=== PATIENT | male | born 1950 | race Two or more races ===

== ENCOUNTER 2025-03-08 09:20 | Emergency (ER) | payer MEDICARE, MEDICAID, SELFPAY ==
[2025-03-08 09:21] VITALS: BMI 38.9
[2025-03-08 09:28] VITALS: BP 145/95; PULSE 104; RESP 18; TEMP 36.7; O2SAT 96
--- NOTE | 2025-03-08 09:30 | XR_ITS ---
Examination: PA lateral chest 2 views TECHNIQUE: Upright PA lateral chest 2 views Date and time: March 08, 2025 0948 hours INDICATIONS: Chest pain beginning 2 days ago COMPARISON: May 29, 2024 FINDINGS: Normal heart size. Lungs are clear. Moderate osteopenia IMPRESSION: No active disease
--- NOTE | 2025-03-08 09:30 | EKG_ITS ---
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: : [id number] Requested By: Atif Grissom (LINOLEUM INSTALLER) Order Number: [id number] Reading MD: Atif Grissom (LINOLEUM INSTALLER) Measurements Intervals [place] Rate: 101 P: 13 NM: 151 QRS: -63 QRSD: 110 T: -15 QT: 338 QTc: 440 Interpretive Statements SINUS TACHYCARDIA LOW QRS VOLTAGE IN PRECORDIAL LEADS [QRS DEFLECTION < 1.0 mV IN CHEST LEADS] INCOMPLETE RIGHT BUNDLE BRANCH BLOCK [90+ ms QRS DURATION, TERMINAL R IN V1/V2, 40+ ms S IN I/aVL/V4/V5/V6] LEFT ANTERIOR FASCICULAR BLOCK [QRS AXIS <= -45, QR IN I, RS IN II] POSSIBLE ANTERIOR MYOCARDIAL INFARCTION , OF INDETERMINATE AGE [30 ms Q WAVE IN V3/V4, OR R < 0.2 mV IN V4] No previous ECG available for comparison /[id number]/S0/[id number].pdf
--- NOTE | 2025-03-08 09:31 | PD.EDRME ---
Rapid Medical Screening Exam RME Arrival date/time: 03/08/25 09:20 74-year-old male with history of hypertension and diabetes presents to the emergency department for complaints of frequent urination, dry mouth and elevated blood sugar Chief Complaint: General Adult/Misc Complain Time Seen by Provider: 03/08/25 09:22 Vital signs: Vital Signs Temperature 98.0 F 03/08/25 09:28 Pulse Rate 104 H 03/08/25 09:28 Respiratory Rate 18 03/08/25 09:28 Blood Pressure 145/95 H 03/08/25 09:28 Pulse Oximetry (%) 96 03/08/25 09:28 Oxygen Delivery Method Room Air 03/08/25 09:28
[2025-03-08 09:49] LABS: Base Excess, Venous 4 (-3-3); O2 Saturation, Venous 64 % (96-97); PCO2, Venous 41 mmHg (36-56); PO2, Venous 30 mmHg (15-58); pH, Venous 7.45 (7.33-7.66)
[2025-03-08 09:51] LABS: Beta Hydroxybutyrate 0.3 mmol/L (<0.6)
[2025-03-08 09:54] LABS: Collection Type, Urine Catheter
[2025-03-08 09:54] LABS: Basophils # (Auto) 0.1 Thou/mm3 (0.0-0.2); Basophils % (Auto) 1 % (0-2.5); Eosinophils # (Auto) 0.1 Thou/mm3 (0.0-0.5); Eosinophils % (Auto) 2 % (0-10); Hemoglobin 15.8 g/dL (13.5-16.0); Immature Granulocytes % (Auto) 0 % (0-0); Immature Granulocytes Auto 0.01 Thou/mm3 (0.00-0.00); Lymphocytes # (Auto) 1.9 Thou/mm3 (1.0-4.8); Lymphocytes % (Auto) 30 % (10-50); Mean Corpuscular HGB Conc 35.1 g/dl (31.0-37.0); Mean Corpuscular Hemoglobin 28.7 pg (25.0-35.0); Mean Corpuscular Volume 82 fL (80-100); Monocytes # (Auto) 0.4 Thou/mm3 (0.0-0.8); Monocytes % (Auto) 6 % (0-12); Neutrophils # (Auto) 3.8 Thou/mm3 (1.8-7.7); Neutrophils % (Auto) 61 % (37-80); Nucleated Red Blood Cell % 0 /100 WBC (0); Platelet Count 197 Thou/mm3 (140-440); RDW Standard Deviation 36.1 fL (35.1-43.9); Red Blood Count 5.51 Miln/mm3 (4.50-5.90); White Blood Count 6.3 Thou/mm3 (3.8-10.6)
[2025-03-08 10:06] LABS: Glucose Estimated Average 355 mg/dL (80-131); Hemoglobin A1C > 14.0 % Hgb (4.8-6.0)
[2025-03-08 10:08] LABS: Bilirubin,Urine Negative (Negative); Blood,Urine Trace (Negative); Clarity,Urine Clear (Clear/Hazy); Color,Urine Yellow (Lt Yel-Yel); Culture Indicated,Urine Not Indicated; Glucose, Urine 4+ (Negative); Ketones,Urine Negative (Negative); Leukocyte Esterase,Urine Negative (Negative); Nitrite,Urine Negative (Negative); PH,Urine 6.5 (5.0-7.0); Protein,Urine Trace (Neg - Trace); RBC,Urine 3 /hpf (0-3); Specific Gravity,Urine 1.038 (1.001-1.035); Squamous Epithelial Cell,Urine < 1 /hpf (0-5); Urobilinogen,Urine Negative mg/dL (0.0-1.0); WBC,Urine 1 /hpf (0-5)
[2025-03-08 10:18] LABS: Alanine Aminotransferase 23 U/L (10-49); Albumin, Serum 4.3 gm/dL (3.4-4.8); Albumin/Globulin Ratio 1.8 (1.2-2.2); Alkaline Phosphatase 100 U/L (46-116); Anion Gap 11 (7-16); Aspartate Amino Transferase 19 U/L (0-34); BUN/Creatinine Ratio 10 Ratio (12-20); Bilirubin,Total 0.6 mg/dL (0.3-1.2); Blood Urea Nitrogen 12 mg/dL (9-23); Calcium 8.8 mg/dL (8.3-10.6); Calcium (Corrected) 8.8 mg/dL (8.5-10.1); Carbon Dioxide 27.5 mMol/L (20.0-31.0); Chloride 103 mMol/L (98-107); Creatinine (Component) 1.2 mg/dL (0.6-1.3); Estimated Creatinine Clearance 65.8 mL/min (>60); Globulin 2.4 gm/dL (2.3-3.5); Glucose 369 mg/dL (74-106); Osmolality,Calculated 295 (275-295); Sodium 141 mMol/L (136-145); Total Protein 6.7 gm/dL (5.7-8.2); Troponin I < 0.020 ng/mL (0.0-0.045); eGFR > 60 See Note
--- NOTE | 2025-03-08 11:21 | PD.EDADULT ---
ED General RME/HPI General Chief complaint: General Adult/Misc Complain Stated complaint: WEAKNESS, DRY MOUTH, FREQUENT URINATION, HIGH BLOO Time Seen by Provider: 03/08/25 09:22 Arrival date/time: 03/08/25 09:20 RME / HPI RME / HPI narrative: 03/08/25 The patient is a 74-year-old gentleman with past medical history significant for hypertension, diabetes mellitus type 2 and hypercholesterolemia presented to ED with chief complaint of excessive thirst, frequent urination and occasional dizziness for the past 1 week. He admitted associated tingling sensation over his bilateral lower limb. He reported feeling thirsty, and drinking a lot of orange juice including sugary drinks for the past 2 weeks. He denied any headache, nausea or vomiting, fever or chills, chest pain, SOB, abdominal pain, any changes in bowel habit or leg swelling. Related Data Previous Rx's ?Medication ?Instructions ?Recorded blood sugar diagnostic (FreeStyle #100 ea 10/31/23 Test strips) lancets 30 gauge (Advocate Lancet) #200 ea 10/31/23 pen needle, diabetic 33 gauge x #100 ea 11/02/2310/13 (Comfort EZ Pen [place]) pen needle, diabetic 32 gauge x #50 ea 02/06/2410/13 (BD Ultra-Fine Micro Pen Needle) docusate sodium 100 mg capsule 100 mg PO QDAY #90 caps 04/02/24 (Colace) meclizine 25 mg tablet 25 mg PO TID PRN dizziness #20 tabs 04/17/24 insulin glargine 100 unit/mL (3 25 unit (0.25 mL) subcut QPM 90 05/07/24 mL) subcutaneous pen (aglar days #22.5 mL KwikPen U-100 Insulin) verapamil 240 mg tablet,extended 240 mg PO QAM #90 tabs 05/07/24 release ibuprofen 600 mg tablet 600 mg PO Q8H PRN fever or pain 05/14/24 #30 tabs empagliflozin 10 mg tablet 10 mg PO QAM #90 tabs 05/29/24 (Jardiance) hydrochlorothiazide 25 mg tablet 25 mg PO QAM #90 tabs 05/29/24 rosuvastatin 20 mg tablet 20 mg PO QDAY #90 tabs 05/29/24 semaglutide 2 mg/dose (8 mg/3 mL) 2 mg (0.75 mL) subcut QWEEK #3 mL 05/29/24 subcutaneous pen injector (Ozempic) cetirizine 10 mg capsule (All Day 10 mg PO QDAY PRN allergy symptoms 07/26/24 Allergy (cetirizine)) #90 caps Allergies Allergy/AdvReac Type Severity Reaction Status Date / Time No Known Allergies Allergy Verified 03/08/25 09:23 Review of Systems Review of Systems Systems Reviewed: All systems reviewed, normal except as documented (Above) ED Exam Narrative Physical exam: General: Elderly, cooperative gentleman, no acute distress, Alert and Oriented x 3 HEENT: Dry mucous membranes, oropharynx clear Neck: Supple, No masses, No JVD CVS: S1S2 Regular rate and rhythm, No murmurs, rubs or gallops Lungs: Clear to auscultation with no accessory use, no wheeze no rhonchi Abd: Soft, NT/ND, +BS, no organomegaly Ext: No edema, warm and well perfused Skin: No rash Psych: Appropriate mood and affect Course Orders Category Date Time Status Bedside Blood Glucose NOW Care 03/08/25 09:31 Active EKG (ED ONLY) *Do not use* NOW Care 03/08/25 09:30 Completed Insert IV NOW Care 03/08/25 09:31 Active EKG (ED Only) Stat Exams 03/08/25 09:30 Draft XR chest 2V Stat Exams 03/08/25 09:30 Completed A1C [Glycohemoglobin w (eAG)] Stat Lab 03/08/25 09:41 Completed Beta Hydroxybutyrate Stat Lab 03/08/25 09:41 Completed CBC Stat Lab 03/08/25 09:41 Completed Comprehensive Metabolic Panel Stat Lab 03/08/25 09:41 Completed Troponin I Stat Lab 03/08/25 09:41 Completed UA, C/S IF [Urinalysis, C/S if Indicated] Stat Lab 03/08/25 09:51 Completed VBG [Venous Blood Gas] Stat Lab 03/08/25 09:41 Completed Sodium Chloride 0.9% 1000 ml [Ns] 1,000 ml Med 03/08/25 11:18 Active IV 999 mls/hr Vital Signs Vital signs: Vital Signs Temperature 98.0 F 03/08/25 09:28 Pulse Rate 104 H 03/08/25 09:28 Respiratory Rate 18 03/08/25 09:28 Blood Pressure 145/95 H 03/08/25 09:28 Pulse Oximetry (%) 96 03/08/25 09:28 Oxygen Delivery Method Room Air 03/08/25 09:28 Discharge Plan Prescriptions/Referrals Prescriptions/Med Rec: No Action (DME) FreeStyle Test Strip See Rx Instructions .Route Qty: 100 3RF Rx Instructions: check blood sugar twice (DME) lancets [Advocate Lancet] 30 gauge misc See Rx Instructions .Route Qty: 200 0RF Rx Instructions: As directed (DME) pen needle, diabetic [BD Ultra-Fine Micro Pen Needle] 32 gauge x 1/4 needle See Rx Instructions .ROUTE .MEDSUPPLY Qty: 50 0RF Rx Instructions: used to inject insulin once a day ibuprofen 600 mg tablet 600 mg PO Q8H PRN (Reason: fever or pain) Qty: 30 0RF docusate sodium [Colace] 100 mg capsule 100 mg PO QDAY Qty: 90 0RF meclizine 25 mg tablet 25 mg PO TID PRN (Reason: dizziness) Qty: 20 0RF insulin glargine [Basaglar KwikPen U-100 Insulin] 100 unit/mL (3 mL) insulin pen 25 unit subcut QPM 90 Days Qty: 22.5 1RF verapamil 240 mg tablet extended release 240 mg PO QAM Qty: 90 0RF hydrochlorothiazide 25 mg tablet 25 mg PO QAM Qty: 90 0RF rosuvastatin 20 mg tablet 20 mg PO QDAY Qty: 90 0RF Jardiance 10 mg tablet 10 mg PO QAM Qty: 90 0RF Ozempic 2 mg/dose (8 mg/3 mL) pen injector 2 mg subcut QWEEK Qty: 3 2RF All Day Allergy (cetirizine) 10 mg capsule 10 mg PO QDAY PRN (Reason: allergy symptoms) Qty: 90 0RF (DME) pen needle, diabetic [Comfort EZ Pen [place]] 33 gauge x 1/4 needle See Rx Instructions .Route Qty: 100 2RF Rx Instructions: Use pen needles to administered insulin once a day Referrals: Kate Whitman, [employer]-C [Primary Care Provider] - In 1 week Patient/Caregiver Discharge Instructions Print Language: Estonian MDM Medication Administration(s) Medication Administration History Sodium Chloride (Ns) 1,000 mls @ 999 mls/hr IV .Q1H1M ONE Stop: 03/08/25 12:18
--- NOTE | 2025-03-08 11:32 | EDNOTE_ITS ---
<Statement entered by Ashlee Pineda MD - 03/19/25 01:04> As co-signing physician, I was present and available for consult prn. I concur with the plan and care as documented by the midlevel provider. ED General RME/HPI General Chief complaint: General Adult/Misc Complain Stated complaint: WEAKNESS, DRY MOUTH, FREQUENT URINATION, HIGH BLOO Time Seen by Provider: 03/08/25 09:22 Arrival date/time: 03/08/25 09:20 RME / HPI RME / HPI narrative: 74-year-old male patient with significant history of hypertension diabetes mellitus, currently on insulin and metformin and recently on Ozempic got the first dose few days ago. Came in for evaluation regarding concern about blood sugar. This morning patient blood sugar was noted to be above 300, complaining of dry mouth, frequent urination, and generalized weakness. Patient denies any vomiting diarrhea or other complaints. Related Data Previous Rx's ?Medication ?Instructions ?Recorded blood sugar diagnostic (FreeStyle #100 ea 10/31/23 Test strips) lancets 30 gauge (Advocate Lancet) #200 ea 10/31/23 pen needle, diabetic 33 gauge x #100 ea 11/02/23 14 (Comfort EZ Pen [place]) pen needle, diabetic 32 gauge x #50 ea 02/06/2410/13 (BD Ultra-Fine Micro Pen Needle) docusate sodium 100 mg capsule 100 mg PO QDAY #90 caps 04/02/24 (Colace) meclizine 25 mg tablet 25 mg PO TID PRN dizziness # 20 tabs 04/17/24 insulin glargine 100 unit/mL (3 25 unit (0.25 mL) subc ut QPM 90 05/07/24 mL) subcutaneous pen (Basaglar days #22.5 mL KwikPen U-100 Insulin) verapamil 240 mg tablet,extended 240 mg PO QAM #90 tab s 05/07/24 release ibuprofen 600 mg tablet 600 mg PO Q8H PRN fever or p ain 05/14/24 #30 tabs empagliflozin 10 mg tablet 10 mg PO QAM #90 tabs 05/29 (Jardiance) hydrochlorothiazide 25 mg tablet 25 mg PO QAM #90 tabs 05/29/24 rosuvastatin 20 mg tablet 20 mg PO QDAY #90 tabs 05/29 semaglutide 2 mg/dose (8 mg/3 mL) 2 mg (0.75 mL) subcu t QWEEK #3 mL 05/29/24 subcutaneous pen injector (Ozempic) cetirizine 10 mg capsule (All Day 10 mg PO QDAY PRN al lergy symptoms 07/26/24 Allergy (cetirizine)) #90 caps Allergies Allergy/AdvReac Type Severity Reaction Status Date / Time No Known Allergies Allergy Verified 03/08/25 09:23 Review of Systems Review of Systems Narrative Review of Systems: Review of system reviewed and within normal limits except mentioned in HPI ED Exam Narrative Physical exam: VITAL SIGNS: Reviewed. GENERAL APPEARANCE: Alert and interactive, follows commands, no acute distress, HEAD AND FACE: Non-traumatic. ENT: PERRL, pink conjunctivitis, eyelid no trauma, Mucous membrane moist. NECK: Supple, nontender, no nuchal rigidity. CHEST: No tenderness, no crepitus, no paradoxical movement, no retractions. LUNGS: Clear, well ventilated, symmetric, no rales, no wheezing, no ronchi, no stridor, good breath sounds bilaterally. HEART: Regular rate, regular rhythm, no murmur, no gallops. ABDOMEN: Soft, positive bowel sounds, nondistended, no guarding, nontender, no rebound, no masses, RECTAL: Deferred. GENITAL: Deferred. NEUROLOGICAL: Gross motor function intact sensory function intact, Appropriate for age. MUSCULOSKELETAL: low back nontender, full range of motion. EXTREMITIES: Nontender, full range of motion. SKIN: Color pink, dry, no rash, no lacerations, no abrasions, no contusions. LYMPHATICS: Deferred. Course Quality Measures none Orders Category Date Time Status Bedside Blood Glucose NOW Care 03/08/25 09:31 Active EKG (ED ONLY) *Do not use* NOW Care 03/08/25 09:30 Completed Insert IV NOW Care 03/08/25 09:31 Active EKG (ED Only) Stat Exams 03/08/25 09:30 Draft XR chest 2V Stat Exams 03/08/25 09:30 Completed A1C [Glycohemoglobin w (eAG)] Stat Lab 03/08/25 09:41 Completed Beta Hydroxybutyrate Stat Lab 03/08/25 09:41 Completed CBC Stat Lab 03/08/25 09:41 Completed Comprehensive Metabolic Panel Stat Lab 03/08/25 09:41 Completed Troponin I Stat Lab 03/08/25 09:41 Completed UA, C/S IF [Urinalysis, C/S if Indicated] Stat Lab 03/08/25 09:51 Completed VBG [Venous Blood Gas] Stat Lab 03/08/25 09:41 Completed Sodium Chloride 0.9% 1000 ml [Ns] 1,000 ml Med 03/08/25 11:18 Active IV 999 mls/hr Vital Signs Vital signs: Vital Signs Temperature 98.0 F 03/08/25 09:28 Pulse Rate 104 H 03/08/25 09:28 Respiratory Rate 18 03/08/25 09:28 Blood Pressure 145/95 H 03/08/25 09:28 Pulse Oximetry (%) 96 03/08/25 09:28 Oxygen Delivery Method Room Air 03/08/25 09:28 Discharge Plan Plan Patient Disposition: HOME (Self Care) Discharge Disposition comment: Stable Prescriptions/Referrals Prescriptions/Med Rec: No Action (DME) FreeStyle Test Strip See Rx Instructions .Route Qty: 100 3RF Rx Instructions: check blood sugar twice (DME) lancets [Advocate Lancet] 30 gauge misc See Rx Instructions .Route Qty: 200 0RF Rx Instructions: As directed (DME) pen needle, diabetic [BD Ultra-Fine Micro Pen Needle] 32 gauge x 1/4 needle See Rx Instructions .ROUTE .MEDSUPPLY Qty: 50 0RF Rx Instructions: used to inject insulin once a day ibuprofen 600 mg tablet 600 mg PO Q8H PRN (Reason: fever or pain) Qty: 30 0RF docusate sodium [Colace] 100 mg capsule 100 mg PO QDAY Qty: 90 0RF meclizine 25 mg tablet 25 mg PO TID PRN (Reason: dizziness) Qty: 20 0RF insulin glargine [Basaglar KwikPen U-100 Insulin] 100 unit/mL (3 mL) insulin pen 25 unit subcut QPM 90 Days Qty: 22.5 1RF verapamil 240 mg tablet extended release 240 mg PO QAM Qty: 90 0RF hydrochlorothiazide 25 mg tablet 25 mg PO QAM Qty: 90 0RF rosuvastatin 20 mg tablet 20 mg PO QDAY Qty: 90 0RF Jardiance 10 mg tablet 10 mg PO QAM Qty: 90 0RF Ozempic 2 mg/dose (8 mg/3 mL) pen injector 2 mg subcut QWEEK Qty: 3 2RF All Day Allergy (cetirizine) 10 mg capsule 10 mg PO QDAY PRN (Reason: allergy symptoms) Qty: 90 0RF (DME) pen needle, diabetic [Comfort EZ Pen [place]] 33 gauge x 1/4 needle See Rx Instructions .Route Qty: 100 2RF Rx Instructions: Use pen needles to administered insulin once a day Referrals: Kate Whitman FNP-C [Primary Care Provider] - In 1 week Problem List Clinical Impression: Hyperglycemia due to type 2 diabetes mellitus Patient/Caregiver Discharge Instructions Discharge Activity: activity as tolerated Education Materials: Managing Your Glucose Level for ... Additional Instructions: Thank you for the opportunity for serving you today. You are stable for discharged . You are advised to: Follow-up with your PCP in 1 to 2 days Return to ED for worsening of symptoms Increase oral fluids Take medication as prescribed by your PCP Please decrease your intake of carbohydrates Try to exercise every day walking for 1 hour daily Print Language: Nepalese Stand Alone Forms: [facility] Award Info., Patient Portal Info Letter DERIAN/EDILSON Supervising Physician DERIAN/EDILSON Supervising Physician: MD Edwin [facility] Narrative MDM hospital course: 74-year-old male patient with significant history of hypertension diabetes mellitus, currently on insulin and metformin and recently on Ozempic got the first dose few days ago. Came in for evaluation regarding concern about blood sugar. This morning patient blood sugar was noted to be above 300, complaining of dry mouth, frequent urination, and generalized weakness. Patient denies any vomiting diarrhea or other complaints. Patient's CBC came back unremarkable. His initial blood sugar was noted to be 369, with no sign of diabetic ketoacidosis. Urinalysis no UTI blood sugar prior to discharge was noted to be 335. Patient is tolerating p.o. fluids. Vital signs are normal prior to discharge. I told the patient to decrease intake of carbohydrates and continue all his diabetic medications. I believe this patient's elevated blood sugar will be improving due to new medication that was started few days ago Ozempic. Patient appears nontoxic and hemodynamically stable. Patient discharged home and instructed to follow-up with primary care provider in 24 to 48 hours. Instructed to return to the emergency department immediately if worsening of symptoms Clinical Information Provided by other: patient Medical Records Reviewed None Meds/Rx Considered, not Ordered None Chronic Illness/Social Conditions which may negatively complicate care or outcome(s)-explain: other (Dehydration hyperglycemia DKA) Add or document further as needed: Hypertension, diabetes mellitus Imaging Imaging interpretation: none Medication Administration(s) Medication Administration History Sodium Chloride (Ns) 1,000 mls @ 999 mls/hr IV .Q1H1M ONE Stop: 03/08/25 12:18 Diagnosis Differential diagnosis: Hyperglycemia DKA, Differential dx and/or dx ruled out: DKA Most likely dx, and/or detailed dx discussion: Hyperglycemia secondary to diabetes mellitus Dispositon Disposition: Discharge Home
== END 2025-03-08 11:45 | disposition home or self-care (01) ==
PROVIDERS: Nurse Practitioner Primary Care; Emergency Provider Emergency Medicine
DX: E11.65 Type 2 diabetes mellitus with hyperglycemia (principal); R07.9 Chest pain, unspecified; R00.0 Tachycardia, unspecified; I45.10 Unspecified right bundle-branch block; I44.4 Left anterior fascicular block; Z79.84 Long term (current) use of oral hypoglycemic drugs; Z79.85 Long-term (current) use of injectable non-insulin antidiabetic drugs; Z79.4 Long term (current) use of insulin
CPT/HCPCS: 36415; 71046; 80053; 81001; 82010; 82803; 83036; 84484; 85025; 93005; 99283

== ENCOUNTER → 2025-03-15 | Outpatient (CLI) | payer MEDICARE, MEDICAID, SELFPAY ==
--- NOTE | 2025-03-15 10:00 | XR_ITS ---
Examination: Abdomen sonogram, complete Date and time of exam: March 15, 2025 0942 hours INDICATIONS: Right flank pain beginning 2 years ago. Technique: Multiple real-time grayscale transabdominal sonographic images of the abdomen have been obtained. Findings: Normal gallbladder Normal common bile duct 0.2 cm Pancreatic head 2.5 cm Aorta not enlarged Liver 16.2 cm fatty infiltration Normal hepatopedal portal venous flow Patent IVC Right kidney 10.3 cm renal cortex 1.4 cm Lower pole mild hydronephrosis Left kidney 12.1 cm cortex 1.6 cm Lower pole mild hydronephrosis Mild bilateral renal parenchymal scar formation Spleen 8.5 cm IMPRESSION: Fatty liver Bilateral lower pole mild hydronephrosis, clinical correlation advised, consider CT stone study follow-up
== END | disposition home or self-care (01) ==
DX: K76.0 Fatty (change of) liver, not elsewhere classified (principal)
CPT/HCPCS: 76700